=== PATIENT | male | born 1970 | race Caucasian/White ===

== ENCOUNTER → 2021-03-06 | Outpatient (CLI) | payer BC | END | disposition home or self-care (01) | LOC: LABMAIN 16:16 | PROVIDERS: ATTEND Physician Assistant | DX: Z20.822 Contact with and (suspected) exposure to COVID-19 (principal) | CPT/HCPCS: 87635 ==

== ENCOUNTER 2022-09-23 17:27 | Emergency (ER) | payer OTHER, BC ==
[2022-09-23] MEDS ORDERED: ALBUTEROL HFA INHALER INHALATION STA (19:13)
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
[2022-09-23 20:47] VITALS: BP 143/78; PULSE 77; RESP 14; TEMP 97.9
== END 2022-09-23 20:47 | disposition home or self-care (01) ==
LOC: EC 17:27
DX: S43.52XA Sprain of left acromioclavicular joint, initial encounter (principal); J45.909 Unspecified asthma, uncomplicated; V43.52XA Car driver injured in collision with other type car in traffic accident, initial encounter; Y92.89 Other specified places as the place of occurrence of the external cause
CPT/HCPCS: 73050; 94640; 96361; 96374; 99284

== ENCOUNTER → 2022-12-22 | Outpatient (CLI) | payer BC ==
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
== END | disposition home or self-care (01) ==
LOC: RADMRIMAIN 06:24
PROVIDERS: ATTEND Orthopaedic Surgery
DX: S83.232A Complex tear of medial meniscus, current injury, left knee, initial encounter (principal); M17.12 Unilateral primary osteoarthritis, left knee; R60.9 Edema, unspecified; X58.XXXA Exposure to other specified factors, initial encounter

== ENCOUNTER 2023-02-02 09:34 | Day surgery (SDC) | payer BC ==
--- NOTE | 2023-02-02 07:32 | HP ---
HISTORY AND PHYSICAL DATE OF SURGERY: 02/02/2023. HISTORY OF PRESENT ILLNESS: Claude Vasquez is a 52-year-old patient, seen with progressive left knee pain. We discussed options for treatment. He elected to proceed with left knee arthroscopy. Consent was obtained. PAST MEDICAL HISTORY: Noncontributory. PAST SURGICAL HISTORY: Knee arthroscopy. DAILY MEDICATIONS: Motrin. ALLERGIES: None. SOCIAL HISTORY: Denies tobacco use. PHYSICAL EVALUATION OF THE LEFT KNEE: Range of motion is -3/4 to 120 degrees. Moderate effusion. Tenderness along the medial and lateral joint lines. Positive medial Erich's. Positive lateral Erich's. Ligaments are stable. Hip rotation is without pain. Distal neurovascular exam is intact. IMAGING STUDIES: Radiographs of the left knee revealed moderate medial compartment osteoarthritis as well as an effusion. MRI of the left knee revealed a complex medial meniscal tear, partial ACL tear, and osteoarthritic changes. IMPRESSION: Internal derangement of left knee with medial meniscal tear. PLAN: Left knee arthroscopy with partial medial meniscectomy and debridement. MMODL / IJN: [id number] /
[2023-02-02] MEDS ORDERED: droPERidol 5 MG/2 ML VIAL IVP ONE (09:53)
[2023-02-02] MEDS ORDERED: ONDANSETRON 4 MG/2 ML VIAL IVP ONE (09:53)
[2023-02-02] MEDS ORDERED: DEXAMETHASONE SOD PHOSPHATE 4 MG/ML 1 ML VIAL IV ONE (09:53)
[2023-02-02] MEDS ORDERED: LIDOCAINE 1% (10MG/ML) FOR IV START INTRADERMA PRN (09:53)
[2023-02-02] MEDS ORDERED: LACTATED RINGERS 1,000 ML IV SCH (09:53)
[2023-02-02] MEDS ORDERED: ONDANSETRON 4 MG/2 ML VIAL ONE (09:56)
[2023-02-02] MEDS ORDERED: fentaNYL (PF) 50 MCG/ML 2 ML AMP IVP ONE (10:32)
[2023-02-02] MEDS ORDERED: LIDOCAINE 2% INJ 20 MG/ML (2 ML VIAL) ONE (11:52)
[2023-02-02] MEDS ORDERED: SUCCINYLCHOLINE CHLORIDE 200 MG/10 ML VIAL IV ONE (11:52)
[2023-02-02] MEDS ORDERED: fentaNYL (PF) 50 MCG/ML 2 ML AMP ONE (11:52)
[2023-02-02] MEDS ORDERED: PROPOFOL 10 MG/ML 20 ML VIAL IV ONE (11:52)
[2023-02-02] MEDS ORDERED: MIDAZOLAM 2 MG/2 ML VIAL ONE (11:52)
[2023-02-02] MEDS ORDERED: BUPIVACAINE (PF) 0.25% 30 ML VIAL INTRAARTIC ONE (11:57)
--- NOTE | 2023-02-02 12:49 | P.OP ---
Date of Procedure: 02/02/23 Preoperative Diagnosis: Internal derangement left knee Postoperative Diagnosis: 1. Tear medial meniscus left knee 2. Reactive synovitis medial, lateral and suprapatellar compartments left knee 3. Lateral plica left knee Procedure(s) Performed: 1. Arthroscopic partial medial meniscectomy left knee 2. Arthroscopic partial synovectomy medial, lateral and suprapatellar compartments left knee 3. Arthroscopic resection lateral plica left knee Anesthesia: JHONNY, local Surgeon: Bernardino Claudio Estimated Blood Loss (ml): 7 Pathology: none sent Condition: stable Disposition: PACU Indications for Procedure: 52-year-old seen with progressive left knee pain. After treatment options were discussed, he elected to proceed with arthroscopy. Operative Findings: See description of procedure Description of Procedure: Patient was taken to the operative suite. Patient underwent a general anesthetic by the department of anesthesia. Patient was given preoperative antibiotics. The left lower extremity was placed in a well-padded arthroscopic leg hamm. The left leg was prepped and draped in the normal sterile orthopedic fashion. A lateral parapatellar and suprapatellar incision was made. Trochars were inserted. Arthroscopy was initiated. Suprapatellar pouch revealed diffuse thick reactive synovitis. The patellofemoral joint appeared to articulate congruently. There was mild grade 1 chondromalacia. The scope was guided into the medial gutter. No loose bodies or plica were identified. The scope was then guided into the medial compartment. A medial parapatellar incision was made. Trocar inserted followed by probe. There was a complex tear involving the posterior horn and midbody of the medial meniscus. There were grade 1/2, she changes throughout the medial compartment with no slough and osteochondral tears present. There was some thick reactive some-itis anteriorly. I performed a partial medial meniscectomy getting down to stable meniscal tissue. I performed a partial synovectomy. The residual meniscus was stable. There was good decompression of the synovitis. Scope and probe were then guided into the intercondylar notch. Cruciates were identified, probed and found to be stable. The scope and probe were then guided into lateral compartment. Lateral meniscus was probed and there was no evidence for tearing. I probed along the meniscal capsular junction and again I found no evidence for any instability or tears. I probed the undersurface of the lateral meniscus all the way from the anterior horn to the posterior horn and again found FOR any tearing of the meniscal capsular attachment. There was thick reactive synovitis anteriorly. There was no chondromalacia present. I performed a partial synovectomy decompressing the thick reactive synovitis. There was good decomp ression of the synovitis. I now reintroduced the probe and again thoroughly probed the anterior lateral meniscus including the undersurface, evidence for any tears. The probe was now removed. I guided the scope into lateral gutter and saw no loose bodies. Once I got near the suprapatellar compartment and I did note what appeared to be a plica. I took the knee through range of motion and this area of scar tissue or plica did impinge along the lateral femoral condyle. I introduced a motorized shaver and I resected out the entire area of scar tissue/plica. The shaver was removed. I again took the knee through range of motion and noted complete resection of that scar tissue/plica with no impingement. The scope was in guided back into the suprapatellar compartment. I debrided some piecemeal fragments of meniscus I encountered. I performed a partial synovectomy. The shaver was now removed. There was good decompression of the synovitis. I took one more look on the entire knee and noted no residual debris. Instruments were now removed from the joint. The joint was infiltrated with .25% Marcaine. Steri-Strips were applied to the portal sites. Sterile dressings were applied. The patient was placed into a JACI hose. No tourniquet was utilized. The patient was awakened, transferred to a bed and taken to recovery stable satisfactory condition.
[2023-02-02 12:59] VITALS: TEMP 97
[2023-02-02] MEDS: HYDROmorphone 0.5 MG/0.5 ML SYRINGE IVP PRN ×2 (13:10→13:22)
[2023-02-02 13:48] VITALS: RESP 18
[2023-02-02 14:04] VITALS: BP 123/78; PULSE 78
== END 2023-02-02 14:45 | disposition home or self-care (01) ==
LOC: OR 09:34
PROVIDERS: ATTEND Orthopaedic Surgery
DX: S83.242A Other tear of medial meniscus, current injury, left knee, initial encounter (principal); M23.92 Unspecified internal derangement of left knee; Z88.6 Allergy status to analgesic agent; Z72.0 Tobacco use; Z79.1 Long term (current) use of non-steroidal anti-inflammatories (NSAID)
CPT/HCPCS: 29881; J2250; J0330; J1100; J0690; J2405; J3010; J2704; J1170; J2001; J0665

== ENCOUNTER → 2023-06-29 | Outpatient (CLI) | payer BC ==
--- NOTE | 2023-06-29 12:28 | CA ---
Stress Echo Report Claude Vasquez Age: 53 Gender: M : 1970 Exam Date: 06/29/2023 08:42 Exam Location: [facility] Ht (in): 68 Wt (lb): 184 Ordering Physician: Silas Starr DO Referring Physician: Silas Starr DO Machine Assembler Supervisor: Adeline Vital [facility] Technologist Procedure CPT: Indication: R07.9 CHEST PAIN ICD-9 Codes: Rhythm: Patient History: ASTHMA Cardiac Medications: NONE Medications in past 24 hours: Contrast: N/A Stress Results Protocol: Med Total dose(mL): Exercise Duration (min:sec): 4:[address] Depression (mm): Angina Score: Dodson Score: METS: 5.8 Resting HR: 79 Resting BP: 131 / 87 Peak HR: 162 Peak BP: 202 / 55 Max Predicted HR: 165 98 % Max Predicted HR Target HR: 140 Double Product: [id number] Stress Summary: BP Response: Reason for Termination: Reached target heart rate or work-load, Maximal effort/unable to continue Cardiac Symptoms: ECG Analysis Resting ECG: Stress ECG: Arrhythmia: Echo Analysis Resting Echo: Peak Echo Analysis: MEASUREMENTS (Male/Female) Normal Values CONCLUSIONS Baseline EKG revealed normal sinus rhythm without significant ST-T changes. Patient walked on a standard Med protocol for a total duration of 4 minutes 11 seconds. Stress test. Because of fatigue shortness of breath and target heart rate was achieved. Exercise capacity is suboptimal. Patient was asymptomatic for angina. There were no ST segment changes to indicate ischemia.. Resting heart rate was 79 bpm and peak heart rate was 162 bpm. Resting blood pressure was 131/87 and peak blood pressure was 202/55. This is a negative stress test by EKG criteria with limited x-rays capacity and hypertensive response to exercise. Baseline echo images revealed normal wall motion wall thickening of all segments. At peak exercise there was good augmentation of the front wall motion wall thickening of all segments suggesting that there is no evidence of any stress-induced ischemia of the study. Final impression: #1 negative stress test by EKG criteria with limited exercise capacity and hypertensive response to exercise #2 normal stress echocardiogram without evidence of ischemia Dr. Tamara Ballard MD (Electronically Signed) Final Date: 29 June 2023 12:27
== END | disposition home or self-care (01) ==
LOC: RADNMMAIN 08:09
PROVIDERS: ATTEND Family Medicine
DX: R94.31 Abnormal electrocardiogram [ECG] [EKG] (principal); J45.909 Unspecified asthma, uncomplicated; R07.9 Chest pain, unspecified
CPT/HCPCS: 93351

== ENCOUNTER → 2024-12-28 | Outpatient (CLI) | payer BC ==
--- NOTE | 2024-12-31 08:02 | MR ---
EXAMINATION TYPE: MR shoulder RT wo con DATE OF EXAM: 12/28/2024 2:16 PM COMPARISON: Outside right shoulder x-ray December 25, 2024 CLINICAL INDICATION: Male, 54 years old with history of M25.511 PAIN IN RIGHT SHOULDER, right shoulde r pain and limited movement for 2 weeks. IV Contrast: cc (None if empty) TECHNIQUE: Multiplanar, multisequence imaging of the right shoulder is performed without contrast. FINDINGS: Rotator Cuff: Some increased signal in the supraspinatus tendon particularly anterior fibers. Full th ickness retracted tear of the supraspinatus tendon to level of the acromion. Some heterogeneity of th e subscapularis tendon. Rotator cuff muscle bulk is preserved. Acromioclavicular Joint: Mild narrowing and spurring. Moderate capsular hypertrophy. Glenohumeral Joint: Moderate size joint effusion. Some narrowing is present. No significant spurring. Labrum: Increased signal superior labrum consistent with tear. Biceps Tendon: The long head of biceps is in normal location within bicipital groove. Increased signa l intracapsular portion. Bone marrow signal: No focal abnormal marrow signal is appreciated. Other: No additional significant abnormality is appreciated. IMPRESSION: 1. [id number] tendinosis of the infraspinatus and subscapularis tendons. Full-thickness retract ed tear of the supraspinatus tendon. 2. Superior labral tear. 3. Moderate degenerative changes are present as detailed above. 4. Tendinosis/partial tearing intracapsular portion long head of biceps tendon. [facility], , 12/31/2024 8:00 AM
== END | disposition home or self-care (01) ==
LOC: RADMRIMAIN 13:40
PROVIDERS: ATTEND Orthopaedic Surgery
DX: M67.813 Other specified disorders of tendon, right shoulder (principal); M75.121 Complete rotator cuff tear or rupture of right shoulder, not specified as traumatic; M19.011 Primary osteoarthritis, right shoulder